=== PATIENT | male | born 1985 | race Caucasian/White ===

== ENCOUNTER 2017-05-30 12:03 | Emergency (ER) | payer BC ==
[~2017-05-30] VITALS: Ht 167.6 cm; Wt 127.3 kg
[2017-05-30 12:05] VITALS: BP 136/79; PULSE 66; RESP 19; O2SAT 97
--- NOTE | 2017-05-30 13:04 | RADRPT ---
EXAM DATE/TIME: 05/30/2017 12:27 [place] COMPARISON: No previous studies available for comparison. INDICATIONS : Mid-sternal radiating into left shoulder with left arm numbness, and radiating into back. MEDICAL HISTORY : None. SURGICAL HISTORY : None. ENCOUNTER: Initial ACUITY: 2 days PAIN SCORE: 10/10 LOCATION: Left chest FINDINGS: Portable AP view of the chest demonstrates a normal-sized cardiac silhouette. The lungs demonstrate n o definite effusion, consolidation, or pneumothorax. The bones and soft tissues demonstrate no acute finding. There is left clavicle hardware. CONCLUSION: No acute cardiopulmonary abnormality is identified. Pop Quinn MD on May 30, 2017 at 13:00 Board Certified Radiologist. This report was verified electronically.
[2017-05-30 13:05] LABS: BASOPHIL % 0.5 % (0.0-2.0); EOSINOPHIL % 0.5 % (0.0-4.0); HEMATOCRIT 45.1 % (39.0-51.0); HEMOGLOBIN 15.8 GM/DL (13.0-17.0); LYMPH % 17.6 % (9.0-44.0); LYMPHOCYTE # 1.4 TH/MM3 (1.0-4.8); MEAN CORPUSCULAR HEMOGLOBIN 29.4 PG (27.0-34.0); MEAN PLATELET VOLUME 7.3 FL (7.0-11.0); MONO % 5.9 % (0.0-8.0); MONOCYTE # 0.5 TH/MM3 (0-0.9); NEUT % 75.5 % (16.0-70.0); PLATELET COUNT 246 TH/MM3 (150-450); RED BLOOD COUNT 5.37 MIL/MM3 (4.50-5.90); RED CELL DISTRIBUTION WIDTH 13.4 % (11.6-17.2); WHITE BLOOD COUNT 7.9 TH/MM3 (4.0-11.0)
[2017-05-30 13:14] LABS: PROTHROMBIN TIME - PATIENT 10.4 SEC (9.8-11.6)
[2017-05-30 13:22] LABS: BICARBONATE 25.8 MEQ/L (21.0-32.0); BLOOD UREA NITROGEN 8 MG/DL (7-18); CALCIUM 8.4 MG/DL (8.5-10.1); CHLORIDE 106 MEQ/L (98-107); CREATININE 0.96 MG/DL (0.60-1.30); GLOMERULAR FILTRATION RATE 92 ML/MIN (>89); GLUCOSE,RANDOM 93 MG/DL (74-106); SODIUM (NA) 140 MEQ/L (136-145)
[2017-05-30 13:25] LABS: TROPONIN I LESS THAN 0.02 NG/ML (0.02-0.05)
[2017-05-30] MEDS ORDERED: CYCLOBENZAPRINE HCL 10 MG TAB PO ONE (13:45)
[2017-05-30] MEDS ORDERED: KETOROLAC TROMETHAMINE 30 MG/ML (IVP) VIAL IV PUSH ONE (13:45)
[2017-05-30] MEDS ORDERED: TRAZ50TA12 PO (13:54)
[2017-05-30 15:30] VITALS: RESP 20
[2017-05-30] MEDS ORDERED: CYCL10TA PO (15:34)
--- NOTE | 2017-05-30 15:35 | PD ---
HPI Chief Complaint: Chest Pain Time Seen by Provider: 13:21 Travel History International Travel<30 days: No Contact w/Intl Traveler<30days: No Traveled to known affect area: No History of Present Illness HPI Patient is a 31-year-old male who comes in complaining of back pain. He says he was at work last night when he felt severe pain to the top of his back. He said he also felt some discomfort in his chest, which he describes as a tightness. He says he has been feeling very anxious. He says he gets these symptoms about once a month. He says he is under a lot of stress as he is going through divorce. He has been taking ibuprofen with minimal relief of his pain. He says today, the pain is gotten worse and he feels short of breath. He also has some numbness in his extremities that is coming and going. He denies fever or chills. He denies cough or cold. Denies nausea or vomiting. He denies any illicit drug use. He is a smoker. PFSH Past Medical History Diminished Hearing: No Musculoskeletal: Yes (CHRONIC BACK/CHEST PAIN ) Tetanus Vaccination: < 5 Years Influenza Vaccination: No Social History Alcohol Use: Yes (1-2 beers weekly) Tobacco Use: Yes (1ppd while working 3 days a week vapor when at home ) Substance Use: No Allergies-Medications (Allergen,Severity, Reaction): Coded Allergies: Fish Containing Products (Verified Allergy, Mild, 05/30/17) No Known Allergies (Verified Allergy, Unknown, 05/30/17) Reported Meds & Prescriptions Reported Meds & Active Scripts Active Reported Trazodone (Trazodone HCl) 50 Mg Tab 50 Mg PO HS Review of Systems Except as stated in HPI: all other systems reviewed are Neg General / Constitutional: No: Fever, Chills HENT: No: Headaches, Lightheadedness Cardiovascular: Positive: Chest Pain or Discomfort Respiratory: Positive: Shortness of Breath Gastrointestinal: No: Nausea, Vomiting Genitourinary: No: Dysuria Musculoskeletal: Positive: Pain, No: Edema Skin: No Rash, No Change in Pigmentation Neurologic: No: Weakness, Dizziness Physical Exam Narrative GENERAL: Awake and alert, in no acute distress. SKIN: Focused skin assessment warm/dry. No wounds or signs of infection. HEAD: Atraumatic. Normocephalic. EYES: Pupils equal and round. No scleral icterus. ENT: Mucous membranes pink and moist. NECK: Trachea midline. No JVD. CARDIOVASCULAR: Regular rate and rhythm. No murmur appreciated. Tender to palpation of the chest wall. RESPIRATORY: No accessory muscle use. Clear to auscultation. Breath sounds equal bilaterally. GASTROINTESTINAL: Abdomen soft, non-tender, nondistended. MUSCULOSKELETAL: No obvious deformities. No clubbing. No cyanosis. No edema. Tender to palpation bilateral trapezius muscles. No cervical spine tenderness. NEUROLOGICAL: Awake and alert. No obvious cranial nerve deficits. Motor grossly within normal limits. Normal speech. PSYCHIATRIC: Appropriate mood and affect; insight and judgment normal. Data Data Last Documented VS Vital Signs Date Time Temp Pulse Resp B/P (MAP) Pulse Ox O2 Delivery O2 Flow Rate FiO2 05/30/17 12:05 66 19 136/79 (98) 97 Orders Orders Electrocardiogram (05/30/17 12:15) Basic Metabolic Panel (Bmp) (05/30/17 12:15) Ckmb (Isoenzyme) Profile (05/30/17 12:15) Complete Blood Count With Diff (05/30/17 12:15) Magnesium (Mg) (05/30/17 12:15) Prothrombin Time / Inr (Pt) (05/30/17 12:15) Act Partial Throm Time (Ptt) (05/30/17 12:15) Troponin I (05/30/17 12:15) Chest, Pa & Lat (05/30/17 12:15) CKMB (05/30/17 12:50) CKMB% (05/30/17 12:50) D-Dimer (05/30/17 13:42) Ketorolac Inj (Toradol Inj) (05/30/17 13:45) Cyclobenzaprine (Flexeril) (05/30/17 13:45) Labs Laboratory Tests Test 05/30/17 12:50 05/30/17 14:10 White Blood Count 7.9 TH/MM3 Red Blood Count 5.37 MIL/MM3 Hemoglobin 15.8 GM/DL Hematocrit 45.1 % Mean Corpuscular Volume 84.0 FL Mean Corpuscular Hemoglobin 29.4 PG Mean Corpuscular Hemoglobin Concent 35.0 % Red Cell Distribution Width 13.4 % Platelet Count 246 TH/MM3 Mean Platelet Volume 7.3 FL Neutrophils (%) (Auto) 75.5 % Lymphocytes (%) (Auto) 17.6 % Monocytes (%) (Auto) 5.9 % Eosinophils (%) (Auto) 0.5 % Basophils (%) (Auto) 0.5 % Neutrophils # (Auto) 6.0 TH/MM3 Lymphocytes # (Auto) 1.4 TH/MM3 Monocytes # (Auto) 0.5 TH/MM3 Eosinophils # (Auto) 0.0 TH/MM3 Basophils # (Auto) 0.0 TH/MM3 CBC Comment DIFF FINAL Differential Comment Prothrombin Time 10.4 SEC Prothromb Time International Ratio 1.0 RATIO Activated Partial Thromboplast Time 26.3 SEC Blood Urea Nitrogen 8 MG/DL Creatinine 0.96 MG/DL Random Glucose 93 MG/DL Calcium Level 8.4 MG/DL Magnesium Level 2.0 MG/DL Sodium Level 140 MEQ/L Potassium Level 3.8 MEQ/L Chloride Level 106 MEQ/L Carbon Dioxide Level 25.8 MEQ/L Anion Gap 8 MEQ/L Estimat Glomerular Filtration Rate 92 ML/MIN Total Creatine Kinase 183 U/L Creatine Kinase MB 1.9 NG/ML Troponin I LESS THAN 0.02 NG/ML D-Dimer Quantitative (PE/DVT) 0.30 MG/L FEU MDM Medical Decision Making Medical Screen Exam Complete: Yes Emergency Medical Condition: Yes Interpretation(s) ECG shows normal sinus rhythm, no ST elevation or depression, normal intervals. Differential Diagnosis Musculoskeletal pain versus anxiety versus ACS (unlikely) Narrative Course Patient is a 31-year-old male who comes in complaining of back pain and chest pain. Exam shows tenderness to palpation of the trapezius muscles as well as the chest wall. IV established, labs sent. Troponin and d-dimer are within normal limits. All other labs are within normal limits. Chest x-ray performed shows no acute abnormalities. Last 24 hours Impressions Chest X-Ray 05/30/17 1215 Signed Impressions: Service Date/Time: Tuesday, May 30, 2017 12:27 - CONCLUSION: No acute cardiopulmonary abnormality is identified. Pop Quinn MD Patient given Toradol and Flexeril. He reports feeling better. He is offered admission to the chest pain center, but would like to try going home. Given a prescription for Flexeril. Advised to take ibuprofen as needed. Advised follow -up with a primary doctor. Advised to return to the ED as needed for any worsening symptoms. Diagnosis Primary Impression: Musculoskeletal back pain Additional Impression: Musculoskeletal chest pain Patient Instructions: General Instructions, Muscle Strain (ED) Additional Instructions: Take ibuprofen as needed for pain. Take a muscle relaxer to help with pain. Follow-up with a primary care doctor. Return to the ED as needed for any worsening symptoms. Scripts Cyclobenzaprine (Flexeril) 10 Mg Tab 10 MG PO TID for Muscle Spasm, #15 TAB 0 Refills Prov: Desi Barnes MD 05/30/17 Disposition: 01 DISCHARGE HOME Condition: Stable Desi Barnes MD May 30, 2017 15:34
--- NOTE | 2017-05-31 09:31 | EKG ---
Date Performed: 05/30/2017 Time Performed: 12:46:09 PTAGE: 31 years EKG: Sinus rhythm NONSPECIFIC T-WAVE ABNORMALITY BORDERLINE ECG NO PREVIOUS TRACING DOCTOR: Cosme Delarosa Interpretating Date/Time 05/31/2017 09:28:57
== END 2017-05-30 15:39 | disposition home or self-care (01) ==
LOC: NEPE 12:03
DX: M54.9 Dorsalgia, unspecified (principal); R07.89 Other chest pain; R20.0 Anesthesia of skin; R94.31 Abnormal electrocardiogram [ECG] [EKG]; F17.200 Nicotine dependence, unspecified, uncomplicated
CPT/HCPCS: 71046; 80048; 82550; 82552; 83735; 84484; 85025; 85379; 85610; 85730; 93005; 96374; 99285; J1885